=== PATIENT | female | born 1950 | race Caucasian/White ===

== ENCOUNTER → 2021-06-02 | Day surgery (SDC) | payer MEDICARE, OTHER ==
[~2021-06-02] MED LIST: AMLODIPINE BESYL5 MG PO; FUROSEMIDE40 MG PO; K-TAB ER20 MEQ PO; METOPROLOL SUCC25 MG PO; ZETIA10 MG PO
[2021-06-02 08:52] LABS: RED BLOOD COUNT 4.56 M/UL (4.00-5.10)
== END | disposition home or self-care (01) ==
LOC: OR 06:56
PROVIDERS: Orthopaedic Surgery
DX: S52.571A Other intraarticular fracture of lower end of right radius, initial encounter for closed fracture (principal); I10 Essential (primary) hypertension; E78.5 Hyperlipidemia, unspecified; K21.9 Gastro-esophageal reflux disease without esophagitis; Z79.899 Other long term (current) drug therapy; Z20.822 Contact with and (suspected) exposure to COVID-19; W19.XXXA Unspecified fall, initial encounter
CPT/HCPCS: 71045; 73110; 76000; 80048; 85027; 93005; C1713; J0690; J1100; J2001; J2250; J2405; J2704; J2795; J7120; U0002